=== PATIENT | female | born 1985 | race Caucasian/White ===

== ENCOUNTER → 2017-08-05 | Outpatient (CLI) | payer BC ==
--- NOTE | 2017-08-06 07:49 | US ---
EXAM DESCRIPTION: Renal CLINICAL HISTORY: 32 years Female, DYSURIA, FLANK (RENAL) PAIN COMPARISON: None. FINDINGS: Renal ultrasound is normal. No hydronephrosis, mass, calculus. Renal cortical thickness and echotexture normal. Right kidney 9.7 x 4.5 x 5.2 cm. Left kidney 10.1 x 4.8 x 5.4 cm. IMPRESSION: Normal study Electronically signed by: Abhi Baer MD 08/06/2017 7:48 AM CDT
== END ==
LOC: US 09:14
PROVIDERS: ATTEND Family Medicine
DX: R30.0 Dysuria (principal); M54.5 Low back pain

== ENCOUNTER → 2017-11-07 | Outpatient (CLI) | payer BC | END | disposition home or self-care (01) | LOC: GMATM 16:53 | PROVIDERS: ATTEND Nurse Practitioner Family | DX: N39.0 Urinary tract infection, site not specified (principal) ==